=== PATIENT | female | born 1965 | race Two or more races ===

== ENCOUNTER 2018-05-10 19:53 | Emergency (ER) | payer OTHER ==
[2018-05-10 19:53] VITALS: BMI 20.1
[2018-05-10 20:07] VITALS: BP 164/99; PULSE 70; TEMP 98.3; O2SAT 100
[2018-05-10] MEDS ORDERED: Fluorescein 1 mg Ophthalmic Strip OU ONE (20:24)
--- NOTE | 2018-05-10 20:24 | C.PDOC ---
History Of Present Illness 53 y/o female presents to ED with c/o foreign body sensation to left eye since this morning. Patient states she was taking out her contact lens and feels as if it is still there. Patient denies vision changes, headache, eye discharge, trauma or any other complaints at this time. Time Seen by Provider: 05/10/18 20:16 Chief Complaint (Nursing): Eye Problem History Per: Patient History/Exam Limitations: no limitations Onset/Duration Of Symptoms: Days Current Symptoms Are (Timing): Still Present Past Medical History Reviewed: Historical Data, Nursing Documentation, Vital Signs Vital Signs: Last Vital Signs Temp 98.3 F 05/10/18 20:03 Pulse 70 05/10/18 20:03 Resp 14 05/10/18 20:03 BP 164/99 H 05/10/18 20:03 Pulse Ox 100 05/10/18 20:03 - Medical History PMH: Anemia Surgical History: No Surg Hx - [facility] Procedures CORONAR ARTERIOGR-2 CATH (12/14/13) LEFT HEART CARDIAC CATH (12/14/13) LT HEART ANGIOCARDIOGRAM (12/14/13) Family History: States: No Known Family Hx - Social History Hx Alcohol Use: No Hx Substance Use: No - Immunization History Hx Tetanus Toxoid Vaccination: No Hx Influenza Vaccination: No Hx Pneumococcal Vaccination: No Review Of Systems Constitutional: Negative for: Fever, Chills Eyes: Positive for: Pain, Redness. Negative for: Vision Change Cardiovascular: Negative for: Chest Pain Respiratory: Negative for: Cough Skin: Negative for: Rash Physical Exam - Physical Exam Appears: Non-toxic, No Acute Distress Skin: Warm, Dry, No Rash Head: Atraumatic, Normacephalic Eye(s): bilateral: PERRL, EOMI, right: Normal Inspection, left: Other (conjunctival injection. lid inversion no foreign body noted; no fluorescence uptake noted) Nose: Normal Oral Mucosa: Moist Neck: Normal ROM, Supple Chest: Symmetrical Cardiovascular: Rhythm Regular Respiratory: Normal Breath Sounds, No Rales, No Rhonchi, No Wheezing Gastrointestinal/Abdominal: Soft, No Tenderness, No Guarding, No Rebound Extremity: Normal ROM Neurological/Psych: Oriented x3, Normal Speech, Normal Cognition ED Course And Treatment O2 Sat by Pulse Oximetry: 100 (RA) Pulse Ox Interpretation: Normal Progress Note: Pt was instructed to follow up with her eye doctor in 1-2 days. Return precautions discussed. Disposition - Disposition Disposition: HOME/ ROUTINE Disposition Time: 20:52 Condition: STABLE Additional Instructions: Follow up with your eye doctor in 2-3 days for further evaluation. Return to the emergency department at any time if symptoms persist or worsen. 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 - Scribe Statement The provider has reviewed the documentation as recorded by the Scribgladys Cho All medical record entries made by the Corie were at my direction and personally dictated by me. I have reviewed the chart and agree that the record accurately reflects my personal performance of the history, physical exam, medical decision making, and the department course for this patient. I have also personally directed, reviewed, and agree with the discharge instructions and disposition.
[2018-05-10] MEDS ORDERED: PROPARACAINE/FLUORESCEIN SOD 100 DROP/5 ML BOTTLE ONE (20:33)
[2018-05-10 21:06] VITALS: RESP 20
== END 2018-05-10 21:05 | disposition home or self-care (01) ==
LOC: C.ER 19:53
DX: S05.02XA Injury of conjunctiva and corneal abrasion without foreign body, left eye, initial encounter (principal); X58.XXXA Exposure to other specified factors, initial encounter

== ENCOUNTER 2018-10-25 15:11 | Emergency (ER) | payer OTHER ==
[2018-10-25 15:12] VITALS: BMI 20.1
[2018-10-25] MEDS ORDERED: Sodium Chloride 0.9% 1,000 ML IV ONE (15:48)
[2018-10-25] MEDS ORDERED: Sodium Chloride 0.9% 1,000 ML ONE (15:57)
--- NOTE | 2018-10-25 15:57 | C.PDOC ---
History Of Present Illness 53 y/o female presents to the ER complaining of abdominal pain and vomiting which began at 5 am. Patient states that she had multiple episode of vomiting. Patient denies having fever,chills,CP,SOB, diarrhea, dysuria, and hematuria. Time Seen by Provider: 10/25/18 15:40 Chief Complaint (Nursing): Abdominal Pain History Per: Patient History/Exam Limitations: no limitations Onset/Duration Of Symptoms: Days Current Symptoms Are (Timing): Still Present Severity: Moderate Past Medical History Reviewed: Historical Data, Nursing Documentation, Vital Signs Vital Signs: Last Vital Signs Temp 97.6 F 10/25/18 15:34 Pulse 66 10/25/18 15:34 Resp 18 10/25/18 15:34 BP 123/81 10/25/18 15:34 Pulse Ox 99 10/25/18 15:34 - Medical History PMH: Anemia Other Surgeries: Hx of surgeries - [facility] Procedures CORONAR ARTERIOGR-2 CATH (12/14/13) LEFT HEART CARDIAC CATH (12/14/13) LT HEART ANGIOCARDIOGRAM (12/14/13) Family History: States: No Known Family Hx - Social History Hx Alcohol Use: No Hx Substance Use: No - Immunization History Hx Tetanus Toxoid Vaccination: No Hx Influenza Vaccination: No Hx Pneumococcal Vaccination: No Review Of Systems Except As Marked, All Systems Reviewed And Found Negative. Constitutional: Negative for: Fever, Chills Gastrointestinal: Positive for: Vomiting, Abdominal Pain. Negative for: Diarrhea Genitourinary: Negative for: Dysuria, Hematuria Physical Exam - Physical Exam Appears: Non-toxic, No Acute Distress Skin: Normal Color, Warm, Dry Head: Atraumatic, Normacephalic Eye(s): bilateral: Normal Inspection Nose: Normal Oral Mucosa: Dry (mildly dry) Neck: Supple Chest: Symmetrical Cardiovascular: Rhythm Regular Respiratory: Normal Breath Sounds, No Rales, No Rhonchi, No Wheezing Gastrointestinal/Abdominal: Normal Exam, Soft, No Tenderness, No Guarding, No Rebound Neurological/Psych: Oriented x3, Normal Speech ED Course And Treatment - Laboratory Results Result Diagrams: 10/25/18 16:13 10/25/18 16:13 Lab Interpretation: Normal O2 Sat by Pulse Oximetry: 99 (RA) Pulse Ox Interpretation: Normal Progress Note: Treated with IVF NSS and zofran. On re-evaluation lungs clear, abdomen soft Reassessment Condition: Improved Medical Decision Making Medical Decision Making: Plan: --Labs --UA --IV Fluids --Zofran IV Disposition Counseled Patient/Family Regarding: Studies Performed, Diagnosis, Need For Followup, Rx Given - Disposition Referrals: [facility] [Outside] [facility] [Outside] Disposition: HOME/ ROUTINE Disposition Time: 18:50 Condition: IMPROVED Prescriptions: Ondansetron ODT [Zofran ODT] 1 odt PO BID PRN #6 odt PRN Reason: Nausea/Vomiting Instructions: Nausea and Vomiting, Adult Forms: [employer] (Bulgarian) - POA Present On Arrival: None - Clinical Impression Clinical Impression: Vomiting, Nausea - 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 - Scribe Statement The provider has reviewed the documentation as recorded by the Scribe Lillian Jacobs Provider Attestation All medical record entries made by the Scribe were at my direction and personal ly dictated by me. I have reviewed the chart and agree that the record accurately reflects my personal performance of the history, physical exam, medical decision making, and the department course for this patient. I have also personally directed, reviewed, and agree with the discharge instructions and disposition.
[2018-10-25 16:22] LABS: BASO % 0.3 % (0.0-2.0); EOS % 0.2 % (0.0-4.0); HEMOGLOBIN 13.7 g/dL (11.0-16.0); LYMPH # 0.7 K/uL (1.0-4.3); LYMPH % 11.7 % (20.0-40.0); MEAN CELL VOLUME 86.5 fL (81.0-99.0); MEAN CORPUSCULAR HEMOGLOBIN 28.7 pg (27.0-31.0); MEAN CORPUSCULAR HGB CONC 33.1 g/dL (33.0-37.0); MEAN PLATELET VOLUME 7.7 fL (7.2-11.7); MONO # 0.2 K/uL (0.0-0.8); MONO % 2.8 % (0.0-10.0); NEUT # 5.2 K/uL (1.8-7.0); RBC 4.79 Mil/uL (3.80-5.20); RED CELL DISTRIBUTION WIDTH 13.1 % (11.5-14.5); WHITE BLOOD COUNT 6.2 K/uL (4.8-10.8)
[2018-10-25 16:33] LABS: ALB/GLOB RATIO 1.5 (1.0-2.1); ALBUMIN 4.3 g/dL (3.5-5.0); ALT/SGPT 18 U/L (9-52); AST/SGOT 30 U/L (14-36); BLOOD UREA NITROGEN 15 mg/dL (7-17); CALCIUM 9.1 mg/dl (8.6-10.4); GFR NON-AFRICAN AMERICAN > 60; LIPASE 69 U/L (23-300)
[2018-10-25 18:42] LABS: SQUAMOUS EPITHIAL 1 /hpf (0-5); URINE BACTERIA RARE (<OCC); URINE BILIRUBIN NEGATIVE (NEGATIVE); URINE BLOOD NEGATIVE (NEGATIVE); URINE CLARITY Clear (Clear); URINE COLOR Yellow (YELLOW); URINE GLUCOSE (UA) NORMAL (Normal); URINE LEUKOCYTE ESTERASE NEG Leu/uL (Negative); URINE PROTEIN NEGATIVE (NEGATIVE); URINE UROBILINOGEN NORMAL mg/dL (0.2-1.0)
[2018-10-25 18:48] VITALS: O2SAT 99
[2018-10-25] MEDS ORDERED: Alum-Mag Hydrox-Simethicone Susp (30 mL) PO STA (18:56)
[2018-10-25 19:04] VITALS: TEMP 98.6
[2018-10-25] MEDS ORDERED: Alum-Mag Hydrox-Simethicone Susp (30 mL) ONE (19:17)
[2018-10-25 19:24] VITALS: BP 133/75; PULSE 71; RESP 18
== END 2018-10-25 19:24 | disposition home or self-care (01) ==
LOC: C.ER 15:11
DX: R11.2 Nausea with vomiting, unspecified (principal)
CPT/HCPCS: 80053; 81001; 83690; 85025; 96361; 96372; 96374; 96375; 99285; J0500; J1885; J2405; J7030